=== PATIENT | male | born 1935 | race Caucasian/White ===

== ENCOUNTER → 2016-11-03 | Day surgery (SDC) | payer MEDICARE ==
[~2016-11-03] MED LIST: ASPIRIN PO; ATENOLOL PO; AVODART0.5 MG PO; COUMADIN PO; FLOMAX0.4 M1 PO; LANOXIN PO; LISINOPRIL PO; ZOCOR PO
--- NOTE | ~2016-11-03 | OR ---
Unit #: [id number] #: [id number] Patient: KARIN BURKS [id number] [address] [place], [place] [address] [id number] O MR#: [id number] NAME: KARIN BURKS. ROOM: Date of Procedure: 11/03/2016 Admission Date: 11/03/2016 Surgeon: Amari Carcamo M.D. : 1935 Attending Physician: Amari Carcamo M.D. Primary Care Physician: Davis Yancey M.D. OPERATIVE REPORT PREOPERATIVE DIAGNOSES Cervical disk disease, cervical radiculopathy, neck pain. POSTOPERATIVE DIAGNOSES Cervical disk disease, cervical radiculopathy, neck pain. PROCEDURE PERFORMED Cervical epidural steroid injection with fluoroscopic guidance for needle injection. INDICATIONS FOR PROCEDURE The patient is an 81-year-old male with neck and right upper extremity pain. It is unclear as to how much of this is due to degenerative shoulder disease and how much of this is due to his neck pathology. He had shoulder injection, which helped somewhat, but did not maintain et al. He does have the symptoms of cervical radiculopathy, which made predominant with a trial of diagnostic therapeutic cervical epidural steroid injection. DESCRIPTION OF PROCEDURE The patient was placed in a seated position. Standard monitors were applied. Sterile prep and drape of the cervical area was performed. The skin at the C6 level was localized with 1% lidocaine. An 18-gauge Hustead needle was then advanced via hanging drop technique and fluoroscopic guidance in toward the epidural space. The patient did not complain of any pain or paresthesia during needle advancement. After confirming proper positioning with fluoroscopy and radiographic contrast, 80 mg of Depo-Medrol and 2 mL of 0.25% bupivacaine were deposited. The patient tolerated the procedure otherwise well and was discharged to the recovery room in stable condition indication. Dictated by... Shannon Watkins/ruslan TD: 11/04/2016 04:18 JOB #: [id number] Unit #: [id number] #: [id number] Patient: KARIN BURKS OPERATIVE REPORT X Amari Carcamo, X PROCEDURE OPERATIVE NOTE
== END | disposition home or self-care (01) ==
LOC: CCSC 09:38
DX: M50.10 Cervical disc disorder with radiculopathy, unspecified cervical region (principal)
CPT/HCPCS: 82947; J1040; J2250

== ENCOUNTER 2017-02-13 18:42 | Emergency (ER) | payer MEDICARE ==
--- NOTE | ~2017-02-13 | CR72 ---
[facility] [[email or web address] [facility] A Service of [facility] & [facility] RADIOLOGY TEXT RESULTS PATIENT: KARIN BURKS LOCATION: SED : 37 UNIT #: [id number] AGE: [address]: Shawn Chamberlain MD SEX: M ORDER DR: [id number] [address] [address] [id number] MR#: [id number] Acc #: [id number] NAME: KARIN BURKS. : 1935 SEX: M STUDY DATE/TIME: 02/13/2017 19:55 UNIT: SED ROOM: STUDY DESCRIPTION: CR Chest Single View Portable Attending Physician: Shawn Chamberlain M.D. Ordering Physician: Jonny Chamberlain, [id number] Primary Care Physician: Davis Yancey M.D. MEDICAL IMAGING REPORT This report is preliminary unless electronic signature is present. EXAM Frontal chest, 02/13/17 INDICATIONS Cough in an 81-year-old male. TECHNIQUE Frontal chest compared with 05/19/05. FINDINGS Cardiac silhouette is enlarged status post median sternotomy. The vascularity is unremarkable. Left lung is clear. There is a lobulated nodular density projecting over the lower lung zone on the right measuring 2 cm not seen on the prior study. It is not definitively calcified. Suggest comparison to more recent chest x-rays, if available, to assess stability. If there are no recent comparison studies or this is a new or enlarging finding compared to comparison studies, then it should be further evaluated with a non-emergent chest CT. It is not present on the most recent comparison dated 06/04/12. IMPRESSION 1. Cardiomegaly without volume overload. 2. Low lung volumes with a 2 cm new nodular density in the right lower lobe. This is indeterminate. Suggest comparison to more recent chest x-rays, if available, or further evaluation with a non-emergent chest CT. Malignancy not excluded. This represents a change from the 2012 comparison study. STAT * RESULT STS. [facility] A Service of [facility] & [facility] RADIOLOGY TEXT RESULTS PATIENT: KARIN BURKS LOCATION: SED : 36 UNIT #: [id number] AGE: [address]: Shawn Chamberlain MD SEX: M ORDER DR: Dictated by... Humberto Mccarthy M.D. THIS IS AN ELECTRONICALLY VERIFIED REPORT Humberto Mccarthy M.D. at 02/14/2017 2:33 PM JOSHUA/yovany TD: 02/13/2017 20:55 JOB #: [id number] MEDICAL IMAGING REPORT Page 1 of 1
--- NOTE | ~2017-02-13 | EKG ---
PATIENT: KARIN BURKS UNIT #: [id number] Ventricular Rate: 75 BPM Atrial Rate: 100 BPM QRS Duration: 182 ms Q-T Interval: 438 ms QTC Calculation(Bezet): 489 ms Calculated R Davenport: -68 degrees Calculated T Davenport: 107 degrees Diagnosis Line: Electronic ventricular pacemaker Diagnosis Line: No previous ECGs available Diagnosis Line: Confirmed by ALIREZA CAMARENA MD ([id number]) on Diagnosis Line: 02/22/2017 8:27:54 AM INTERPRETING MD: NICOL WEST
[2017-02-13 19:37] LABS: BASOPHIL# 0.1 X10e3 (0-0.3); BASOPHIL% 0.7 % (0-2.5); DIFF IND NO; EOSINOPHIL# 0.1 X10e3 (0-0.7); EOSINOPHIL% 1.5 % (0.0-7.0); HEMATOCRIT 40.2 % (38.0-50.0); HEMOGLOBIN 13.5 gm/dL (13.0-16.0); LYMPHOCYTE# 2.2 X10e3 (1.0-3.5); LYMPHOCYTE% 21.1 % (17.0-45.0); MEAN CELL VOLUME 92.6 FL (83-96); MEAN CORPUSCULAR HGB CONC 33.5 g/dL (30-36); MEAN PLATELET VOLUME 6.9 FL (6.5-11.5); MONOCYTE# 1.1 X10e3 (0-1.0); MONOCYTE% 10.4 % (3.0-12.0); NEUTROPHIL# 6.8 X10e3 (1.5-7.1); NEUTROPHIL% 66.3 % (40-75); PLATELET COUNT 270 X10e3 (140-420); RED BLOOD COUNT 4.34 X10e (3.90-5.60); RED CELL DISTRIBUTION WIDTH 14.1 % (11.0-15.5); WHITE BLOOD COUNT 10.3 X10e3 (4.0-10.5)
[2017-02-13 19:49] LABS: POC - CKMB 2.1 ng/mL (0.0-7.9)
[2017-02-13 19:50] LABS: POC - TROPONIN <0.05 ng/mL (<=0.05)
[2017-02-13 19:54] LABS: INR 2.6; PROTHROMBIN TIME (PATIENT) 30.2 SECONDS (9.5-12.4)
[2017-02-13 20:02] LABS: CALCIUM SERUM 9.3 mg/dL (8.4-10.2); CREATININE SERUM 0.7 mg/dL (0.6-1.4); GLOM FILT RATE Estimated 89.2 mL/min (>60); PARTIAL THROMBOPLASTIN TIME 36.9 SECONDS (25.6-38.1)
== END 2017-02-13 22:30 | disposition home or self-care (01) ==
LOC: SED 18:42
PROVIDERS: Emergency Medicine
DX: I10 Essential (primary) hypertension (principal); R91.8 Other nonspecific abnormal finding of lung field; I48.91 Unspecified atrial fibrillation; E11.9 Type 2 diabetes mellitus without complications; Z95.0 Presence of cardiac pacemaker; Z87.891 Personal history of nicotine dependence; Z79.01 Long term (current) use of anticoagulants; Z79.82 Long term (current) use of aspirin
CPT/HCPCS: 36415; 71010; 80048; 82553; 83880; 84484; 85025; 85379; 85610; 85730; 93005; 99284

== ENCOUNTER → 2017-02-14 | Outpatient (CLI) | payer MEDICARE ==
--- NOTE | ~2017-02-14 | CT57 ---
[facility] A Service of [facility] & [facility] RADIOLOGY TEXT RESULTS PATIENT: KARIN BURKS LOCATION: [facility] : 37 UNIT #: [id number] AGE: [address]: Davis Yancey MD SEX: M ORDER DR: [id number] [address] [address] [id number] O MR#: [id number] Acc #: [id number] NAME: KARIN BURKS. : 1935 SEX: M STUDY DATE/TIME: 02/14/2017 13:15 UNIT: [facility] ROOM: STUDY DESCRIPTION: CT Chest Wo Cont Attending Physician: Davis Yancey M.D. Referring Physician: Davis Yancey M.D. Ordering Physician: Davis Yancey M.D. Primary Care Physician: Davis Yancey M.D. MEDICAL IMAGING REPORT This report is preliminary unless electronic signature is present. EXAM CT chest without contrast INDICATION Right-sided lung mass demonstrated on chest x-ray. This is a CT scan performed for better evaluation of the lung mass. TECHNIQUE CT of the chest was performed without contrast. Coronal and sagittal reformatted images were obtained. This CT examination was performed with one or more of the following radiation dose reduction techniques: automatic exposure control, adjustment of mA and/or kV according to patient size, and iterative reconstruction. Comparison is made with chest x-ray from 02/13/2017. FINDINGS There is a lobulated nodule within the right lower lobe measuring roughly 2.6 x 2.2 cm. This accounts for the finding on the chest x-ray and in review of previous chest x-rays this is a new finding compared with 2012. There are some scattered calcified granulomas elsewhere in the lungs. Linear scarring within the left lung. There are calcified hilar lymph nodes. There is no definite lymphadenopathy. Prior sternotomy and CABG. No pleural effusion. Limited imaging of the upper abdomen demonstrates a cholecystectomy. There is a small nodule in the left adrenal gland which measures very low Hounsfield units of (near 0) which is probably a small adenoma. The bone windows demonstrate degenerative changes of the spine. IMPRESSION There is a large lobulated nodule in the right lower lobe measuring roughly 2.6 x 2.2 cm. This finding is concerning for malignancy and further evaluation is recommended with a PET/CT. [facility] A Service of [facility] RADIOLOGY TEXT RESULTS PATIENT: KARIN BURKS LOCATION: [facility] : 37 UNIT #: [id number] AGE: [address]: Davis Yancey MD SEX: M ORDER DR: Dictated by... Fermin Tan M.D. THIS IS AN ELECTRONICALLY VERIFIED REPORT Fermin Tan M.D. at 02/16/2017 7:01 AM CHAPITO/leonard TD: 02/15/2017 09:20 JOB #: [id number] MEDICAL IMAGING REPORT Page 1 of 1
== END | disposition home or self-care (01) ==
LOC: SCT 13:15
DX: R22.2 Localized swelling, mass and lump, trunk (principal); R91.1 Solitary pulmonary nodule
CPT/HCPCS: 71250

== ENCOUNTER → 2017-04-18 | Day surgery (SDC) | payer MEDICARE ==
--- NOTE | ~2017-04-18 | OR ---
Unit #: [id number] #: [id number] Patient: KARIN BURKS [id number] [address] [address] [id number] O MR#: [id number] NAME: KARIN BURKS ROOM: Date of Procedure: 04/18/2017 Admission Date: 04/18/2017 Surgeon: Amari Carcamo M.D. : 1935 Attending Physician: Amari Carcamo M.D. Primary Care Physician: Davis Yancey M.D. OPERATIVE REPORT PREOPERATIVE DIAGNOSES Neck pain, cervical disk disease, cervical radiculopathy. POSTOPERATIVE DIAGNOSES Neck pain, cervical disk disease, cervical radiculopathy. PROCEDURE PERFORMED Cervical epidural steroid injection with intravenous sedation and fluoroscopic guidance for needle localization. INDICATIONS FOR PROCEDURE The patient is an 81-year-old male, who has had return of neck and right upper extremity pain associated with cervical disk disease and cervical spinal stenosis. He is not a surgical candidate. He was treated with a single epidural steroid injection about 5-1/2 months ago. He did very well with greater than 50% improvement for over 5 months. The pain has begun to return over the last few weeks. Based on history, pathology, symptomatology, and treatment options, plan is to repeat a trial of epidural steroids. DESCRIPTION OF PROCEDURE The patient was placed in a seated position. Standard monitors were applied. 1 mg of Versed was given for sedation and anxiolysis, which was adequate. Vital signs remained stable. Sterile prep and drape then of the cervical area was performed. The skin at the C5 level was localized with 1% lidocaine. An 18-gauge Monkey Puzzle Mediatead needle was then advanced via hanging drop technique and fluoroscopic guidance in toward the epidural space. After confirming proper positioning with fluoroscopy and radiographic contrast, 80 mg of Depo-Medrol and 2 mL of 0.25% bupivacaine were deposited. The patient tolerated the procedure otherwise well and was discharged to the recovery room in stable condition. Dictated by... Shannon WatkinsP/ruslan TD: 04/18/2017 12:21 JOB #: [id number] Unit #: [id number] #: [id number] Patient: KARIN BURKS OPERATIVE REPORT Page 1 of 1 X Amari Carcamo MD X PROCEDURE OPERATIVE NOTE
== END | disposition home or self-care (01) ==
LOC: CCSC 07:37
DX: M50.10 Cervical disc disorder with radiculopathy, unspecified cervical region (principal); M48.02 Spinal stenosis, cervical region
CPT/HCPCS: J1040; J2250